=== PATIENT | female | born 1965 | race Caucasian/White ===

== ENCOUNTER 2022-07-27 11:13 | Emergency (ER) | payer OTHER ==
[~2022-07-27] VITALS: Ht 165.1 cm; Wt 75.3 kg
[~2022-07-27 11:13] MED LIST: DIOVAN HCT 1601 EACH PO; GABAPENTIN100 MG PO; NORFLEX100MG PO; NORVASC5 MG PO; OMEGA 3 1,0001 EACH; OMEGA PO; OXYC1TAB9 PO; VITAMIN C PO; VITAMIN C100 MG; VITAMIN D; VITAMIN D310 MC4; XARELTO10 MG PO
[2022-07-27] MEDS ORDERED: PERCOCET 5-3251 EACH PO (13:12)
[2022-07-27] MEDS ORDERED: NORFLEX100MG PO (13:12)
== END 2022-07-27 13:00 | disposition home or self-care (01) ==
LOC: ER 11:13
DX: M25.561 Pain in right knee (principal); Z88.6 Allergy status to analgesic agent; Z91.018 Allergy to other foods